=== PATIENT | female | born 1980 | race Caucasian/White ===

== ENCOUNTER 2018-07-22 14:11 | Emergency (ER) | payer MEDICAID, SELFPAY ==
[2018-07-22 14:12] VITALS: BP 128/82; PULSE 96; RESP 14; TEMP 36.6; O2SAT 100; BMI 27.4
--- NOTE | 2018-07-22 14:28 | RAD_ITS ---
STUDY: X-RAY - LEFT KNEE REASON FOR EXAM: Female, 37 years old. Pain following a recent fall. TECHNIQUE: 4 view(s) of the knee. COMPARISON: None. FINDINGS: Normal visualized distal femur. Normal visualized proximal tibia and fibula. Normal proximal tibiofibular articulation. Normal medial femorotibial compartment. Normal lateral femorotibial compartment. Normal patellofemoral articulation. Small joint effusion. RAD/Knee 4 or More Views IMPRESSION: Small joint effusion. Electronically Signed: Alfred Rae MD at 15:33 EST Tel [phone], Service support ,
[2018-07-22] MEDS: HYDROcodone Bitartrate/Apap 5/325 Tablet PO (14:34)
[2018-07-22] MEDS: Naproxen 500 MG Tablet PO (14:34)
--- NOTE | 2018-07-22 15:43 | ED.VISSUMM ---
- ER Visit Summary Date of Service: 07/22/18 Chief Complaint: Left knee pain History of Present Illness: The patient is a [address] Man. She reports that yesterday she was coming down a ladder and missed the last 2 rungs of the ladder and twisted her left knee awkwardly. States that she has a sharp pain senna 10 with movement and 6 out of 10 at rest. She is not taking anything for pain. She denies any other injuries. Physical Examination: Vitals: Stable. Afebrile. Neck: No vertebral tenderness. Full ROM without difficulty. Cleared by NEXUS criteria. Back: No vertebral tenderness. General: A&O x 3. NAD. Cardiovascular exam: Regular rate and rhythm, no murmur, rub or gallop. Respiratory exam: Chest nontender. No crepitus. Clear to auscultation bilaterally. No wheezes or stridor. Abdominal exam: Soft, nontender, nondistended, normal bowel sounds. No pain in RUQ or LUQ specifically. No peritoneal signs. Extremity: Moderate diffuse on palpation over her entire left knee. She has pain, but no legs mentis instability with anterior/posterior drawer. There is no pain or ligamentous instability with medial/lateral stress. He does have a slight joint effusion. Test Results: X-ray shows the effusion. No fracture. Emergency Department Course and Treatment: An [facility] report was obtained which was negative. Patient was treated with naproxen and [place]. Treatment Plan: Patient be discharged with naproxen, [place], crutches, and a knee immobilizer. Instructed to follow-up with Dr. Man and/or Dr. Aamir Bird in 1 week if not improving. Return to the emergency department for any worsening symptoms. Disposition: To home in improved and stable condition. Impression: 1. Left knee pain, acute. This note was generated with [employer] dictation software. It may contain incorrect words, spelling, and punctuation that were not noted in review of the chart prior to signing ED Disposition - Plan for ED Patient: Disposition: Home or Assisted Living Chief Complaint: Lower Extremity Injury Instructions: ED Knee Pain [facility] Prescriptions: Hydrocodone Bitart/Apap 5-325 [[place] 5MG-325MG] 1 tablet PO Q4H PRN PRN 2 Days #10 tablet PRN Reason: Pain Naproxen [Naprosyn] 500 mg PO BID #20 tablet Referrals: Aamir Bird MD [STAFF PHYSICIAN] - 1 Week if not improving Jamey Man MD [Primary Care Provider] - 1 Week if not improving
[2018-07-22 15:58] VITALS: RESP 16
--- NOTE | 2018-07-22 15:59 | ED.RN ---
REVIEWED D/C INSTRUCTIONS, FOLLOW UP CARE, PRESCRIPTIONS, AND S/S THAT WOULD WARRANT A RETURN TO THE ED WITH PT. PT VERBALIZED AN UNDERSTANDING AND DENIES FURTHER QUESTIONS FOR THIS RN. PT SKIN P/W/D, RESP EVEN AND UNLABORED, PT A&O X 3, NO DISTRESS NOTED. PT AMBULATED OUT OF ED, GAIT STEADY.
== END 2018-07-22 16:01 | disposition home or self-care (01) ==
LOC: ED 14:49
PROVIDERS: Emergency Provider Emergency Medicine; Family Provider Family Medicine; PCP Family Medicine
DX: M25.562 Pain in left knee (principal); Z72.0 Tobacco use
CPT/HCPCS: 73564; 99285

== ENCOUNTER 2019-05-10 11:56 | Emergency (ER) | payer MEDICAID, SELFPAY ==
[2019-05-10 11:57] VITALS: BP 116/79; PULSE 87; RESP 18; TEMP 36.6; O2SAT 99; BMI 32.7
--- NOTE | 2019-05-10 14:05 | CT_ITS ---
STUDY: CT ABDOMEN AND PELVIS WITHOUT CONTRAST REASON FOR EXAM: Female, 38 years old. Left flank pain. History of asthma. RADIATION DOSAGE (If Supplied By Facility): CTDIvol = ( 10.44 ) mGy, DLP = ( 524.30 ) mGycm TECHNIQUE: Transaxial images were obtained from the dome of the diaphragm to the symphysis pubis without oral contrast, and without intravenous contrast. Sagittal and coronal images were reconstructed. Individualized dose optimization techniques were used for this CT. COMPARISON: Comparison is made with prior study of September 20, 2012. FINDINGS: The visualized lung bases are unremarkable. The visualized portions of the heart are within normal limits. Normal liver. There are surgical clips in the gallbladder fossa consistent with a prior cholecystectomy. Normal spleen. Normal pancreas. Normal bilateral adrenal glands. Normal right kidney. Normal left kidney. Normal visualized stomach. Normal small intestine. Normal colon. Retrocecal appendix. Small calcific densities are seen within the patent lumen. Normal abdominal aorta. Normal inferior vena cava. Normal retroperitoneum. Normal urinary bladder. Phleboliths are seen within the pelvis. There is a small umbilical hernia containing fat. Normal osseous structures. CT/Abdomen/Pelvis without Cont IMPRESSION: Retrocecal appendix. The appendiceal lumen is filled with a high attenuation material most likely representing oral contrast from prior examination or possible appendicolith. Electronically Signed: Alfred Rae, at 15:18 EDT , Service support ,
[2019-05-10] MEDS: Ketorolac 30 MG/ML Syringe IV (14:20)
[2019-05-10] MEDS: 0.9% Normal Saline 1,000 ML 150 ML IV (14:24)
[2019-05-10 14:33] LABS: Mucous, Urine 0 SEEN /hpf (<or=2+)
[2019-05-10 14:34] LABS: Absolute Lymphocyte Count 3.55 X10^3/uL (0.83-4.51); Absolute Neutrophil Count 5.3 X10^3/uL (2.0-7.7); Basophil# 0.07 X10^3/uL; Basophil% 0.7 % (0-1); Eosinophil# 0.35 X10^3/uL; Eosinophils% 3.5 % (0-5); Hematocrit 43.7 % (37-47); Hemoglobin 14.7 g/dL (12.0-15.0); Lymphocyte # 3.55 X10^3/ul (4.0); Lymphocyte % 35.4 % (19-41); Mean Corp Hgb Conc 33.6 g/dL (32-36); Mean Corpuscular Hgb 31.9 pg (27.0-32.0); Mean Corpuscular Volume 94.8 fL (81-99); Mean Platelet Vol. 10.3 fl (6.2-12.0); Monocyte# 0.77 X10^3/uL; Monocyte% 7.7 % (0-10); NRBC Flagged by Analyzer 0 % (0-5); Neutrophil # 5.25 X10^3/uL (2.7-7.7); Neutrophil % 52.2 % (47-70); Platelet Count 293 K/mm3 (150-450); RBC Distribution Width CV 11.9 % (11.6-14.6); RBC Distribution Width SD 41.1 fl (35.1-43.9); Red Blood Count 4.61 M/mm3 (4.2-5.4)
[2019-05-10 14:36] LABS: Color, Urine Yellow (Yellow); Glucose, Dipstick Normal (Normal); Ketone-Dipstick Negative (Negative); Leukocyte Esterase-Dipstick 25 /ul (Negative); Nitrite-Dipstick Positive (Negative); Occult Blood-Urine 10 /ul (Negative); Protein-Dipstick Negative (Negative); Urine Bilirubin Dipstick Negative (Negative); Urine Clarity Sl. Cloudy (Clear); Urine Urobilinogen Normal (Normal)
[2019-05-10 14:43] LABS: Bacteria 2+ /hpf (None Seen); Red Blood Cells-Urine 0-5 SEEN /hpf (0-5); Squamous Epithelial Cells - UA 0-5 SEEN /hpf (5-10); White Blood Cells 5-10 SEEN /hpf (0-5)
[2019-05-10 14:45] LABS: Anion Gap 5 (5-15); BUN 16 mg/dL (7-18); BUN/Creat Ratio 17.2 RATIO (10-20); Calcium,Total 9.1 mg/dL (8.5-10.1); Chloride 108 mmol/L (98-107); Creatinine, Serum 0.93 mg/dL (0.55-1.02); EST Glomerular Filtration Rate 72 mL/min (>60); Est Glom Filt Rate - Afr Amer 87 mL/min (>60); Estimated Creatinine Clearance 78.29 ml/min; Glucose 93 mg/dL (74-106); Potassium 3.7 mmol/L (3.5-5.1); Sodium Level 140 mmol/L (136-145)
--- NOTE | 2019-05-10 15:29 | ED.VISSUMM ---
- ER Visit Summary Date of Service: 05/10/19 Chief Complaint: [Left flank pain] History of Present Illness: The patient is a 38 F [to the emergency department with pain in her left flank that started yesterday. Patient states that pain came on gradually and now is a continuous pain that she rates about a 5 out of 10. Patient states her pain radiates to the lower abdomen. Patient noticed some hematuria yesterday. She denies frequency or urgency. Patient denies fever. She has no history of kidney stones. Patient otherwise has no medical history.] Physical Examination: [HEENT-PERRLA, EOMI. Cranial nerves II through XII grossly intact. TMs clear. Mucous membranes moist. No adenopathy. Cardiovascular-regular rate and rhythm without murmur or ectopy Lungs-clear to auscultation, chest wall stable without crepitus or subcu emphysema Abdomen-normoactive bowel sounds, soft. Patient has some mild tenderness over the left lower quadrant with some guarding. She has CVA tenderness on the left. There is no rebound, rigidity, cranial signs. Extremities-intact ?4, normal range of motion, normal pulses, atraumatic] Test Results: [See with hip obtained showed a white blood cell count of 10, hemoglobin 14.7, hematocrit 44, placed 293. History is unremarkable. Urinalysis showed 25 leukocyte esterase as well as positive nitrites and 5-10 WBCs and +[address] flank showed nothing acute.] Emergency Department Course and Treatment: [She was ordered Rocephin 1 g IV. Patient was given Toradol 30 mill grams IV. Urine culture ordered.] Treatment Plan: [Will be treated with Bactrim for 5 days. Patient will be given a prescription for Pyridium.] Disposition: [Home in stable condition.] Impression: [UTI] This note was generated with [employer] dictation software. It may contain incorrect words, spelling, and punctuation that were not noted in review of the chart prior to signing ED Disposition - Plan for ED Patient: Referrals: Jamey Man MD [Primary Care Provider] -
--- NOTE | 2019-05-10 15:32 | ED.DEP ---
ED Disposition - Plan for ED Patient: Instructions: FLANK PAIN, Uncertain Cause, Urinary Tract Infections in Women Prescriptions: Smz/Tmp Ds [Bactrim Ds] 1 tab PO BID #10 tab Prescription Printed Phenazopyridine HCl [Pyridium] 200 mg PO BID PRN PRN #10 tab PRN Reason: Pain Prescription Printed Referrals: Jamey Man MD [Primary Care Provider] - 3-5 Days
[2019-05-10] MEDS: Ceftriaxone 1 GM/50 ML BAG IV (15:55)
[2019-05-10 16:17] VITALS: BP 110/75; PULSE 72; RESP 16; O2SAT 100
== END 2019-05-10 16:18 | disposition home or self-care (01) ==
LOC: ED 13:57
PROVIDERS: Emergency Provider Emergency Medicine; Family Provider Family Medicine; PCP Family Medicine
DX: N39.0 Urinary tract infection, site not specified (principal); Z87.891 Personal history of nicotine dependence
CPT/HCPCS: 74176; 80048; 81001; 85025; 87086; 87088; 87186; 96361; 96365; 96375; 99283; J7030; A4216

== ENCOUNTER 2019-12-01 13:46 | Emergency (ER) | payer MEDICAID, SELFPAY ==
[2019-12-01 13:48] VITALS: BP 116/85; PULSE 92; RESP 18; TEMP 36.9; O2SAT 99; BMI 33.0
--- NOTE | 2019-12-01 14:10 | CT_ITS ---
STUDY: CT ABDOMEN AND PELVIS WITHOUT CONTRAST REASON FOR EXAM: Female, 39 years old. R FLANK PAIN ROTATES TO RUQ, STARTED 3 DAYS AGO GETTING [place] RADIATION DOSAGE (If Supplied By Facility): CTDIvol = ( 11.44 ) mGy, DLP = ( 577.54 ) mGycm TECHNIQUE: Transaxial images were obtained from the dome of the diaphragm to the symphysis pubis without oral contrast, and without intravenous contrast. Sagittal and coronal images were reconstructed. Individualized dose optimization techniques were used for this CT. COMPARISON: Comparison is made with prior examination dated May 10, 2019. FINDINGS: The visualized lung bases are unremarkable. The visualized portions of the heart are within normal limits. Normal liver. There are surgical clips in the gallbladder fossa consistent with a prior cholecystectomy. Normal spleen. Normal pancreas. Normal bilateral adrenal glands. Normal right kidney. Normal left kidney. Normal visualized stomach. Normal small intestine. Normal colon. Retrocecal appendix. Small calcific densities are once again seen within the patent appendiceal lumen. Normal abdominal aorta. Normal inferior vena cava. There is borderline retroperitoneal lymphadenopathy with enlarged nodes no greater than 10mm in the short axis diameter. Normal urinary bladder. Phleboliths are seen within the pelvis. There is a small umbilical hernia containing fat. Normal osseous structures. CT/Abdomen/Pelvis without Cont IMPRESSION: No acute abnormality is seen. Electronically Signed: Alfred Rae, at 15:18 EDT , Service support ,
[2019-12-01 14:53] LABS: Absolute Lymphocyte Count 2.62 X10^3/uL (0.83-4.51); Absolute Neutrophil Count 9.7 X10^3/uL (2.0-7.7); Basophil# 0.06 X10^3/uL; Basophil% 0.4 % (0-1); Eosinophil# 0.05 X10^3/uL; Eosinophils% 0.4 % (0-5); Hematocrit 44.5 % (37-47); Hemoglobin 14.7 g/dL (12.0-15.0); Lymphocyte # 2.62 X10^3/ul (4.0); Lymphocyte % 18.9 % (19-41); Mean Corpuscular Hgb 31.5 pg (27.0-32.0); Mean Corpuscular Volume 95.3 fL (81-99); Mean Platelet Vol. 10.3 fl (6.2-12.0); Monocyte# 1.37 X10^3/uL; Monocyte% 9.9 % (0-10); NRBC Flagged by Analyzer 0 % (0-5); Neutrophil # 9.67 X10^3/uL (2.7-7.7); Neutrophil % 69.9 % (47-70); Platelet Count 314 K/mm3 (150-450); RBC Distribution Width CV 12.2 % (11.6-14.6); RBC Distribution Width SD 42.4 fl (35.1-43.9); Red Blood Count 4.67 M/mm3 (4.2-5.4); White Blood Count 13.8 K/mm3 (4.4-11.0)
[2019-12-01 14:55] LABS: Mucous, Urine 0 SEEN /hpf (<or=2+)
[2019-12-01 15:07] LABS: AST(SGOT) 22 U/L (15-37); Alanine Aminotransfer ALT/SGPT 44 U/L (13-56); Alkaline Phosphatase 74 U/L (45-117); Anion Gap 4 (5-15); BUN 10 mg/dL (7-18); BUN/Creat Ratio 9.1 RATIO (10-20); Calcium,Total 9.6 mg/dL (8.5-10.1); Chloride 105 mmol/L (98-107); EST Glomerular Filtration Rate 59 mL/min (>60); Est Glom Filt Rate - Afr Amer 72 mL/min (>60); Estimated Creatinine Clearance 65.55 ml/min; Globulin 4.1 g/dL (2.2-4.2); Glucose 92 mg/dL (74-106); Lipase 126 U/L (73-393); Potassium 3.6 mmol/L (3.5-5.1); Protein, Total 8.1 g/dL (6.4-8.2); Sodium Level 136 mmol/L (136-145)
[2019-12-01] MEDS: 0.9% Normal Saline 1,000 ML 1000 ML IV (15:07)
[2019-12-01] MEDS: Ondansetron 4 MG/2 ML Vial IV (15:09)
[2019-12-01] MEDS: Morphine 4 MG/ML Syringe IV (15:09)
[2019-12-01 15:16] LABS: Color, Urine Yellow (Yellow); Glucose, Dipstick Normal (Normal); Ketone-Dipstick Negative (Negative); Leukocyte Esterase-Dipstick 500 /ul (Negative); Nitrite-Dipstick Positive (Negative); Occult Blood-Urine 50 /ul (Negative); Protein-Dipstick 30 mg/dl (Negative); Urine Bilirubin Dipstick Negative (Negative); Urine Clarity Cloudy (Clear); Urine Urobilinogen Normal (Normal)
[2019-12-01 15:22] LABS: Bacteria 1+ /hpf (None Seen); Red Blood Cells-Urine 0-5 SEEN /hpf (0-5); Squamous Epithelial Cells - UA 5-10 SEEN /hpf (5-10); White Blood Cells 25-50 SEEN /hpf (0-5)
--- NOTE | 2019-12-01 15:32 | ED.DCSUM_ITS ---
- ER Visit Summary Date of Service: 12/01/19 Chief Complaint: Abdominal pain History of Present Illness: The patient is a [address] Man. She reports that she has right upper quadrant abdominal pain that began 2 days ago. It is a constant sharp pain that is 10 on a 10 in severity. Is worsened by movement and relieved by nothing. She said nausea vomiting. No diarrhea. Her last bowel was yesterday. No matter medication. No dysuria frequency. She status post hysterectomy. Physical Examination: Vitals: Stable. Afebrile. General: Well-nourished and well-developed. Head: Normocephalic atraumatic. Neck: Supple, no lymphadenopathy. No JVD. Nontender. Cardiovascular: Regular rate and rhythm. No murmurs. Respiratory: No respiratory distress. Clear to auscultation bilaterally. Abdominal: Soft, mild right upper quadrant and epigastric tenderness to palpation, nondistended, normal bowel sounds. No guarding, rebound, or peritoneal signs. Back: Nontender. Extremities: Nontender, no edema. Skin: Normal color, no rash. Neurologic: Alert and oriented ?3. Cranial nerves II through XII are intact. Normal strength and sensation. Psych: Normal affect. Test Results: CBC shows a white count of 13.8 with 19 lymphocytes. Chem-7 shows a creatinine 1.1. LFTs are normal. Lipase is normal. UA has 25-50 white blood cells and is nitrite positive. However, there is 5-10 epithelial cells. 1+ bacteria. This was sent for culture. Clinical Impression(s) from Imaging Studies Abdomen/Pelvis CT 12/01/19 14:10 IMPRESSION: No acute abnormality is seen. Electronically Signed: Alfred Rae, at 15:18 EDT , Service support , Emergency Department Course and Treatment: Patient had an IV placed. She was given morphine and Zofran IV. She was given Keflex p.o. Review of her prior urinalysis shows pansensitive E. coli in April. Treatment Plan: Patient will be discharged with Keflex, Zofran, and 10 [place]. Instructed to follow-up her primary care physician in 3 to 5 days if not improving. Return to the emergency department for any worsening symptoms. Disposition: To home in improved and stable condition. Impression: 1. [place] pain, uncertain cause. 2. Nitrite positive urine. This note was generated with [employer] dictation software. It may contain incorrect words, spelling, and punctuation that were not noted in review of the chart prior to signing ED Disposition - Plan for ED Patient: Instructions: ED CYSTITIS Female Adult Prescriptions: Cephalexin [Keflex] 500 mg PO Q12 #14 capsule Hydrocodone Bitart/Apap 5-325 [[place] 5MG-325MG] 1 tablet PO Q4H PRN PRN 2 Days #10 tablet PRN Reason: Pain Ondansetron [Zofran Odt] 4 mg PO Q8H PRN PRN #10 tablet PRN Reason: Nausea Referrals: Jamey Man MD [Primary Care Provider] - 3-5 Days if not improving
[2019-12-01] MEDS: Cephalexin 500 MG Capsule PO (15:58)
[2019-12-01 16:06] VITALS: PULSE 85; RESP 18; O2SAT 98
== END 2019-12-01 16:08 | disposition home or self-care (01) ==
LOC: ED 15:10
PROVIDERS: Emergency Provider Emergency Medicine; PCP Family Medicine
DX: R10.11 Right upper quadrant pain (principal); R10.13 Epigastric pain; Z90.710 Acquired absence of both cervix and uterus; Z87.440 Personal history of urinary (tract) infections; Z87.891 Personal history of nicotine dependence
CPT/HCPCS: 74176; 80053; 81001; 83690; 85025; 96361; 96374; 96375; 99283; J7030; A4216; J2405

== ENCOUNTER → 2019-12-06 06:40 | Outpatient (CLI) | payer MEDICAID, SELFPAY ==
[2019-12-01 13:48] VITALS: BMI 33.0
--- NOTE | 2019-12-06 08:51 | NEURO ---
NCS and/or EMG Patient Report Ordering Doctor: Elvia Daniel DATE OF SERVICE: 12/06/19 Brenda Saravia is a 39-year-old female who presents for electrodiagnostic testing of the upper limbs. She reports pain and numbness in both hands, worse on the right side. Electrodiagnostic findings: Median motor nerve demonstrates normal distal latency, amplitude and conduction velocity bilaterally. Normal median ulnar F waves. Ulnar motor responses within normal limits, including conduction across the elbow. Prolonged right median sensory latency at the wrist. Normal ulnar and radial sensory responses. On needle EMG, all muscles tested in the upper limb showed no evidence of denervation with normal motor unit action potentials. Electrodiagnostic assessment: This is an abnormal study. 1. Electrodiagnostic findings demonstrate right-sided median mononeuropathy. This is consistent with a mild right carpal tunnel syndrome. If there are any further questions, please do not hesitate to contact me.
== END ==
PROVIDERS: PCP Family Medicine; Referring Provider Physician Assistant; Visit Provider Physician Assistant
DX: R20.0 Anesthesia of skin (principal); R29.898 Other symptoms and signs involving the musculoskeletal system
CPT/HCPCS: 95886; 95912

== ENCOUNTER → 2020-01-23 10:08 | Outpatient (CLI) | payer MEDICAID, SELFPAY | PROVIDERS: PCP Family Medicine; Referring Provider Nurse Practitioner Adult Health; Visit Provider Nurse Practitioner Adult Health | DX: Z03.818 Encounter for observation for suspected exposure to other biological agents ruled out (principal) | CPT/HCPCS: 87635; G2023; U0003 ==

== ENCOUNTER 2020-04-08 11:23 | Emergency (ER) | payer MEDICAID, SELFPAY ==
[2020-04-08 11:25] VITALS: BP 136/99; PULSE 95; RESP 16; TEMP 35.7; O2SAT 99; BMI 25.8
--- NOTE | 2020-04-08 11:27 | ED.DCSUM_ITS ---
History of Present Illness Chief Complaint: Complaint Informant: Patient Narrative: 39-year-old female presenting with concern for having a UTI. She states she does not have dysuria or urinary frequency, but the last 2 time she had UTIs she did not have symptoms. She does have some left-sided flank pain associated with this. She states she had a fever of 107 ?F yesterday and today it was 101 ?F. She does not have any cough, shortness of breath, myalgias, loss of taste or smell. She states she does have a headache and it feels like her previous migraines. Past Medical History - Allergies and Home Meds Allergies/Adverse Reactions: Allergies No Known Allergies Allergy (Verified 04/08/20 11:24) Primary Care Physician: Jamey Man MD [Primary Care Provider] - Past Medical History: - - UTI Surgical History: hysterectomy Lives: Alone Smoking Status: Current every day smoker Alcohol: None Drugs: None Review of Systems General: Reports: Fever. Denies: Chills, Malaise Eyes: Denies: Visual changes - bilaterally, Diplopia ENT: Denies: Rhinorrhea, Sore throat Cardiovascular: Denies: Chest pain, Palpitations Respiratory: Denies: Dyspnea, Cough, Dyspnea on exertion Gastrointestinal: Reports: Nausea. Denies: Abdominal pain, Vomiting, Diarrhea, Constipation Genitourinary: Denies: Dysuria, Hematuria, Frequency Musculoskeletal: Reports: Back pain Skin: Denies: Rash, Abscess Neurological: Reports: Headache. Denies: Weakness, Parasthesia Physical Exam Vital Signs/Narrative: Vital Signs Temp Pulse Resp BP Pulse Ox 04/08/20 11:25 96.2 F L 95 16 136/99 H 99 Inital Vital Signs reviewed: Yes General: Well nourished, No Acute Distress Head: Normocephalic, Atraumatic Eyes: Perrl ENT: Moist mucous membranes, No rhinorrhea Cardiovascular: Regular rate, Regular rhythm Respiratory: No distress, CTA bilaterally Abdomen: Soft, Nontender, Nondistended Back: CVA tenderness - Left-sided CVA tenderness. Negative for: Spinal tenderness Extremities: Nontender, No edema Skin: Normal color, No rash Neurological: Alert, Oriented x3 Psychological: Normal affect, Normal Mood Diagnostic/Tx/Re-eval Clinical Impression(s) from Imaging Studies Abdomen/Pelvis CT 04/08/20 11:50 IMPRESSION: Fatty infiltration of the liver. Status post appendectomy and cholecystectomy. No acute abnormality is seen. Electronically Signed: Alfred Rae, at 12:14 EDT , Service support , Laboratory Data 04/08/20 04/08/20 04/08/20 11:47 11:47 11:47 WBC 13.6 H RBC 4.47 Hgb 14.3 Hct 43.0 MCV 96.2 MCH 32.0 MCHC 33.3 RDW Std Deviation 43.0 RDW Coeff of Robert 12.1 Plt Count 307 MPV 10.2 Immature Gran % (Auto) 0.500 Neut % (Auto) 66.3 Lymph % (Auto) 22.7 [place] % (Auto) 9.0 Eos % (Auto) 0.9 Baso % (Auto) 0.6 Absolute Neuts (auto) 9.0 H Absolute Lymphs (auto) 3.08 Nucleated RBC % 0 Sodium 139 Potassium 3.8 Chloride 105 Carbon Dioxide 29.0 Anion Gap 5 BUN 11 Creatinine 1.04 H Estim Creat Clear Calc 69.33 Est GFR (MDRD) Af Amer 77 Est GFR (MDRD) Non-Af 63 BUN/Creatinine Ratio 10.6 Glucose 115 H Calcium 9.5 Urine Color Yellow Urine Clarity Sl. Cloudy Urine pH 7.0 Ur Specific [place] 1.010 Urine Protein 15 H Urine Glucose (UA) Normal Urine Ketones Negative Urine Occult Blood 50 H Urine Nitrite Negative Urine Bilirubin Negative Urine Urobilinogen Normal Ur Leukocyte Esterase 100 H Urine RBC 0-5 SEEN Urine WBC 10-25 SEEN Ur Squamous Epith Cells 5-10 SEEN Urine Bacteria 1+ Urine Mucus 0 SEEN - Medical Decision Making Patient presents with history of fever and concern for UTI as well as left-sided flank pain. She also states that she now has a migraine headache. She was given Reglan, Benadryl, Toradol as well as IV fluids. Her headache did resolve. Her pain was improved. Her urinalysis is consistent with UTI. This was sent for culture. CT of the abdomen pelvis does not show any perinephric stranding, however she does have left CVA tenderness so I will treat her as pyelonephritis. She was started on Keflex in the ED. He is given a prescription for this as well as nausea medication. She is given return precautions. Patient is stable for discharge at this time. Impression: 1. Pyelonephritis ED Disposition - Plan for ED Patient: Disposition: Home or Assisted Living Instructions: ED, Migraine (Classical), ED Pyelonephritis Female Adult Prescriptions: Cephalexin [Keflex] 500 mg PO Q6 #40 cap Transmission Status: Received by [facility] Ondansetron [Zofran Odt] 4 mg PO Q8H PRN PRN #14 tab PRN Reason: Nausea Transmission Status: Received by [facility] Referrals: Jamey Man MD [Primary Care Provider] -
[2020-04-08] MEDS: 0.9% Normal Saline 1,000 ML 999 ML IV (11:45)
[2020-04-08] MEDS: Metoclopramide 10 MG/2 ML Vial IV (11:45)
[2020-04-08] MEDS: Ketorolac 30 MG/ML Syringe IV (11:45)
[2020-04-08] MEDS: DiphenhydrAMINE 50 MG/ML Syringe 25 MG IV (11:46)
--- NOTE | 2020-04-08 11:50 | CT_ITS ---
STUDY: CT ABDOMEN AND PELVIS WITHOUT CONTRAST REASON FOR EXAM: Female, 39 years old. HEADACHE WITH URINARY SX AND FEVER. POSSIBLE KIDNEY STONES. HX OF HYSTERECTOMY AND ANDRES RADIATION DOSAGE (If Supplied By Facility): CTDIvol = ( 14.17 ) mGy, DLP = ( 725.85 ) mGycm TECHNIQUE: Transaxial images were obtained from the dome of the diaphragm to the symphysis pubis without oral contrast, and without intravenous contrast. Sagittal and coronal images were reconstructed. Individualized dose optimization techniques were used for this CT. COMPARISON: Comparison is made with prior study dated 12/01/2019. FINDINGS: The visualized lung bases are unremarkable. The visualized portions of the heart are within normal limits. There is decreased attenuation of the liver consistent with steatosis. There are surgical clips in the gallbladder fossa consistent with a prior cholecystectomy. Normal spleen. Normal pancreas. Normal bilateral adrenal glands. Normal right kidney. Normal left kidney. There is a small hiatal hernia. Normal small intestine. Normal colon. The appendix is visualized and appears normal. Once again, small calcific densities are seen within the patent appendiceal lumen. Normal abdominal aorta. Normal inferior vena cava. There is borderline retroperitoneal lymphadenopathy with enlarged nodes no greater than 10mm in the short axis diameter. Normal urinary bladder. There is absence of the uterus consistent with a prior hysterectomy. Small follicles are seen in the left ovary. There is a small umbilical hernia containing fat. Normal osseous structures. CT/Abdomen/Pelvis without Cont IMPRESSION: Fatty infiltration of the liver. Status post appendectomy and cholecystectomy. No acute abnormality is seen. Electronically Signed: Alfred Rae, at 12:14 EDT , Service support ,
[2020-04-08 11:53] LABS: Mucous, Urine 0 SEEN /hpf (<or=2+)
[2020-04-08 11:55] LABS: Absolute Lymphocyte Count 3.08 X10^3/uL (0.83-4.51); Basophil# 0.08 X10^3/uL; Basophil% 0.6 % (0-1); Eosinophil# 0.12 X10^3/uL; Eosinophils% 0.9 % (0-5); Hemoglobin 14.3 g/dL (12.0-15.0); Lymphocyte # 3.08 X10^3/ul (4.0); Lymphocyte % 22.7 % (19-41); Mean Corp Hgb Conc 33.3 g/dL (32-36); Mean Corpuscular Volume 96.2 fL (81-99); Mean Platelet Vol. 10.2 fl (6.2-12.0); Monocyte# 1.22 X10^3/uL; NRBC Flagged by Analyzer 0 % (0-5); Neutrophil # 9.01 X10^3/uL (2.7-7.7); Neutrophil % 66.3 % (47-70); Platelet Count 307 K/mm3 (150-450); RBC Distribution Width CV 12.1 % (11.6-14.6); Red Blood Count 4.47 M/mm3 (4.2-5.4); White Blood Count 13.6 K/mm3 (4.4-11.0)
[2020-04-08 11:58] LABS: Color, Urine Yellow (Yellow); Glucose, Dipstick Normal (Normal); Ketone-Dipstick Negative (Negative); Leukocyte Esterase-Dipstick 100 /ul (Negative); Nitrite-Dipstick Negative (Negative); Occult Blood-Urine 50 /ul (Negative); Protein-Dipstick 15 mg/dl (Negative); Urine Bilirubin Dipstick Negative (Negative); Urine Clarity Sl. Cloudy (Clear); Urine Urobilinogen Normal (Normal)
[2020-04-08 12:06] LABS: Bacteria 1+ /hpf (None Seen); Red Blood Cells-Urine 0-5 SEEN /hpf (0-5); Squamous Epithelial Cells - UA 5-10 SEEN /hpf (5-10); White Blood Cells 10-25 SEEN /hpf (0-5)
[2020-04-08 12:07] LABS: Anion Gap 5 (5-15); BUN 11 mg/dL (7-18); BUN/Creat Ratio 10.6 RATIO (10-20); Calcium,Total 9.5 mg/dL (8.5-10.1); Chloride 105 mmol/L (98-107); Creatinine, Serum 1.04 mg/dL (0.55-1.02); EST Glomerular Filtration Rate 63 mL/min (>60); Est Glom Filt Rate - Afr Amer 77 mL/min (>60); Estimated Creatinine Clearance 69.33 ml/min; Glucose 115 mg/dL (74-106); Potassium 3.8 mmol/L (3.5-5.1); Sodium Level 139 mmol/L (136-145)
[2020-04-08] MEDS: Cephalexin 250 MG Capsule 500 MG PO (13:21)
== END 2020-04-08 13:27 | disposition home or self-care (01) ==
LOC: ED 12:05
PROVIDERS: Emergency Provider Student in an Organized Health Care Education/Training Program; PCP Family Medicine
DX: N12 Tubulo-interstitial nephritis, not specified as acute or chronic (principal); F17.200 Nicotine dependence, unspecified, uncomplicated; Z87.440 Personal history of urinary (tract) infections
CPT/HCPCS: 74176; 80048; 81001; 85025; 87077; 87086; 87088; 87186; 96361; 96374; 96375; 99284; J7030; A4216; J2405

== ENCOUNTER 2023-02-26 08:56 | Emergency (ER) | payer MEDICAID, SELFPAY ==
[2023-02-26 08:57] VITALS: BP 125/99; PULSE 82; RESP 16; TEMP 36.4; O2SAT 96; BMI 36.9
--- NOTE | 2023-02-26 09:18 | RAD_ITS ---
STUDY: X-RAY - LEFT KNEE REASON FOR EXAM: Female, 42 years old. Left knee pain for several weeks and swelling. TECHNIQUE: 4 view(s) of the knee. COMPARISON: Comparison is made with prior study generate 2018. FINDINGS: Normal visualized distal femur. Normal visualized proximal tibia and fibula. Normal proximal tibiofibular articulation. Normal medial femorotibial compartment. Normal lateral femorotibial compartment. Normal patellofemoral articulation. The soft tissue structures are unremarkable. RAD/Knee 4 or More Views IMPRESSION: Normal x-ray examination of the knee. Electronically Signed: Alfred Rae MD at 9:51 EDT ,
--- NOTE | 2023-02-26 10:03 | EDS_ITS ---
HPI History of Present Illness Chief Complaint: Lower Extremity Injury Informant: patient Narrative Narrative: Patient presents with left knee pain. Patient's been having off-and-on left knee pain for 3 or 4 months. She has not yet seen anyone. She does work as an recreation assistant position at a store. She does a lot of lifting stocking bending and what ever else is needed to get the job done. But no specific injury occurred. No fevers or chills. No hist ory of prior injury to this knee although she has had problems with the other before. Most of her knee pain is in the front. No swelling in the legs. No trouble breathing or chest pain. PFSH PFSH Home Medications Cetirizine Hcl [Zyrtec] 10 mg PO DAILY 09/04/13 [History Last Taken 12/12/13] albuterol sulfate 90 mcg/actuation aerosol inhaler (Ventolin HFA) 1 puff inhalation Q4H PRN PRN Wheezing 09/04/13 [History Last Taken 12/14/13 07:00 1 PUFF] ibuprofen 600 mg tablet 600 mg PO Q6H PRN PRN Pain ##60 12/16/13 [Rx Last Taken Unknown] naproxen 500 mg tablet 500 mg PO BID #20 tabs 07/22/18 [Rx Last Taken Unknown] ondansetron 4 mg disintegrating tablet 4 mg PO Q8H PRN PRN Nausea #10 tabs 12/01/19 [Rx Last Taken Unknown] cephalexin 500 mg capsule 500 mg PO Q6 #40 caps 04/08/20 [Rx Last Taken Unknown] ondansetron 4 mg disintegrating tablet 4 mg PO Q8H PRN PRN Nausea #14 tabs 04/08/20 [Rx Last Taken Unknown] naproxen 500 mg tablet 500 mg PO BID #20 tabs 02/26/23 [Rx Last Taken Unknown] Allergy/AdvReac Type Severity Reaction Status Date / Time No Known Allergies Allergy Verified 02/26/23 08:58 Social History Smoking Status: Former smoker ROS ROS ED Constitutional Constitutional ED: Denies chills, fever(s), subjective or sweats Cardiovascular Cardiovascular: Denies chest pain or palpitations Respiratory/Chest Respiratory/Chest: Denies cough or dyspnea Gastrointestinal Gastrointestinal: Denies nausea or vomiting Musculoskeletal Musculoskeletal: Reports arthralgias Integumentary Denies abscess, Abrasions or rash Neurologic Neurologic: Denies paresthesias or weakness Hematologic/Lymphatic Hematologic/Lymphatic: Denies easy bleeding, easy bruising or lymphadenopathy EXAM Physical Exam Narrative Exam Narrative: Patient awake alert no acute distress sitting comfortably in bed. HEENT shows no trauma or pallor. Cardiorespiratory shows normal heart rate and easy unlabored breathing with normal saturations at 96% on room air showing no hypoxia. Extremities show no asymmetry. There is no effusion of the knee. There is no warmth. There is no redness. There is no pain with passive range of motion. There is some discomfort with compression on the patella. Joint lines are nontender. There is no instability of the knee. No posterior fullness. Calf and thigh show no tenderness edema cords or tenderness along the deep venous system. Const Vital Signs: 02/26/23 08:57 Temperature 97.6 F L Temperature Source Temporal Pulse Rate 82 Respiratory Rate 16 Blood Pressure 125/99 H Blood Pressure Mean 107 Pulse Ox 96 Oxygen Delivery Method Room Air MDM MDM MDM Narrative Medical decision making narrative: Patient's exam and history is mostly consistent with repetitive motion type pain and patellofemoral syndrome. My independent interpretation of the patient's 4 view x-ray of the left knee shows no sign of acute fracture foreign body or abnormality. Final reading by radiology shows normal x-ray examination of the knee. I will give the patient a online sheet about exercises for vastus medialis oblique is muscle building. We will start her on Naprosyn. Ice and rest is appropriate. She should follow-up with primary physician or orthopedics. Radiography Diagnostic Testing: Clinical Impression(s) from Imaging Studies Knee X-Ray 02/26/23 09:18 IMPRESSION: Normal x-ray examination of the knee. Electronically Signed: Alfred Rae MD at 9:51 EDT , Discharge Plan Triage Chief Complaint: Lower Extremity Injury ED Provider: Sky Alcaraz Dx/Rx/DC Orders Clinical Impression: Knee pain, left, Patellofemoral pain syndrome of left knee Instructions: Patellofemoral Syndrome Prescriptions: New naproxen 500 mg tablet 500 mg PO BID Qty: 20 0RF No Action albuterol sulfate [Ventolin HFA] 1 INHALER inhaler 1 puff inhalation Q4H PRN PRN (Reason: Wheezing) Patient Comments: shortness of breath Cetirizine Hcl [Zyrtec] 10 MG tablet 10 mg PO DAILY Patient Comments: allergies ibuprofen 600 MG tablet 600 mg PO Q6H PRN PRN (Reason: Pain) Qty: 60 0RF Patient Comments: pain naproxen 500 MG tablet 500 mg PO BID Qty: 20 0RF ondansetron 4 MG tablet 4 mg PO Q8H PRN PRN (Reason: Nausea) Qty: 10 0RF cephalexin 500 MG capsule 500 mg PO Q6 Qty: 40 0RF ondansetron 4 MG tablet 4 mg PO Q8H PRN PRN (Reason: Nausea) Qty: 14 0RF Primary Care Provider: Care Physician,No Primary Referrals: Krunal Garcia DO [Med Staff - Active Staff] - 1 Week if not improving Care Physician,No Primary [Primary Care Provider] - Disposition Disposition: Home, Self Care
== END 2023-02-26 10:34 | disposition home or self-care (01) ==
PROVIDERS: Emergency Provider Emergency Medicine; Visit Provider Emergency Medicine
DX: M22.2X2 Patellofemoral disorders, left knee (principal); Z87.891 Personal history of nicotine dependence
CPT/HCPCS: 73564; 99282

== ENCOUNTER → 2023-06-30 | Outpatient (CLI) | payer MEDICAID, SELFPAY ==
--- NOTE | 2023-06-30 08:06 | MRI_ITS ---
STUDY: MRI LEFT KNEE REASON FOR EXAM: Female, 42 years old. Pain, lateral knee, rule out meniscus tear. TECHNIQUE: Standardized fat and water weighted pulse sequences were obtained in all 3 orthogonal planes. COMPARISON: Left knee radiographs dated 02/26/2023. FINDINGS: Normal medial meniscus. Normal hyaline cartilage of the medial femorotibial compartment. Normal medial femoral condyle and tibial plateau. Normal medial collateral ligamentous complex (MCL). Normal distal semimembranosus, gracilis and semitendinosus tendons. Normal lateral meniscus. Normal hyaline cartilage of the lateral femorotibial compartment. Normal lateral femoral condyle and tibial plateau. Normal proximal tibiofibular articulation. Normal lateral collateral (fibular) ligament. Normal popliteus tendon. Normal biceps femoris tendon. Normal anterior cruciate ligament (ACL). Normal posterior cruciate ligament (PCL). There is lateral patellar subluxation. There is a shallow femoral trochlear notch, compatible with femoral trochlear dysplasia. The TT-TG distance measures 24 mm. Normal hyaline cartilage of the patellofemoral compartment. Normal medial and lateral patellar retinaculum. Normal quadriceps tendon. Normal patellar tendon. Normal Hoffa''s fat pad. There is a moderate volume joint effusion. There is no popliteal cyst. There is minimal subcutaneous soft tissue edema located anterior to the tibial tubercle. The otherwise visualized osseous structures are unremarkable. MRI/Lower Ext Joint Only (Routine) IMPRESSION: Lateral patellar subluxation, with femoral trochlear dysplasia. Moderate joint effusion. No discrete meniscal tear or acute ligamentous injury. Electronically Signed: Tarun Jewell MD at 10:06 EST ,
== END | disposition home or self-care (01) ==
LOC: MRI 08:05
PROVIDERS: PCP Internal Medicine; Referring Provider Orthopaedic Surgery Sports Medicine; Visit Provider Orthopaedic Surgery Sports Medicine
DX: M25.562 Pain in left knee (principal)
CPT/HCPCS: 73721